=== PATIENT | female | born 2005 | race Caucasian/White ===

== ENCOUNTER 2024-10-30 18:29 | Observation (INO) ==
[2024-10-30 19:02] LABS: Basophils # (auto) 0.02 K/uL (0.00-0.20); Basophils % (auto) 0.1 %; Eosinophils # (auto) 0.05 K/uL (0.00-0.50); Eosinophils % (auto) 0.4 %; Hematocrit (blood only) 41.2 % (37.0-47.0); Hemoglobin 14.3 g/dl (12.0-16.0); Immature Granulocytes # (auto) 0.05 K/uL (0.01-0.20); Immature Granulocytes % (auto) 0.4 %; Lymphocytes # (auto) 1.27 K/uL (1.20-3.40); Lymphocytes % (auto) 8.9 %; Mean Corpuscular Hemoglobin 30.4 pg (25.0-34.0); Mean Corpuscular Hgb Conc 34.7 g/dL (32.0-36.0); Mean Corpuscular Volume 87.7 fL (80.0-100.0); Mean Platelet Volume 10.5 fL (9.4-12.4); Monocytes # (auto) 1.24 K/uL (0.11-0.59); Monocytes % (auto) 8.7 %; Neutrophils # (auto) 11.58 K/uL (1.40-6.50); Neutrophils % (auto) 81.5 %; Platelet Count 164 K/uL (130-400); RDW Coefficient of Variation 11.5 % (11.5-14.5); RDW Standard Deviation 37.3 fL (36.4-46.3); White Blood Count 14.21 K/ul (4.8-10.8)
[2024-10-30 19:09] LABS: Albumin Globulin Ratio 1.5 (0.9-2); Albumin Level 4.5 gm/dl (3.4-5.0); BUN Creatinine Ratio 15.6 (10-20); Bilirubin,Total 0.5 mg/dl (0.2-1.0); Calcium 9.6 mg/dl (8.6-10.3); Globulin 3.1 gm/dl (2.5-4.0); Potassium 3.9 mmol/L (3.5-5.1); Total Protein 7.6 gm/dl (6.0-8.3)
--- NOTE | 2024-10-30 19:22 | Emergency Department Note ---
Impression & Plan Acute appendicitis, Abdominal pain, Leukocytosis ED Provider Note NAME: MICHAEL GONZALEZ AGE: 19 SEX: F : 2005 ARRIVES VIA: Walk-In INFORMANT: Patient ED PROVIDER(S): Zurdo Martínez DO CHIEF COMPLAINT: Abdominal pain, nausea and vomiting HPI: Patient is a 19-year-old female who presents to the ER WITH NO SIGNIFICANT PAST MEDICAL HISTORY for mid abdominal pain associated with nausea and vomiting. Normal bowel movements with her last bowel movement earlier today. Last menstrual period just finished up several days ago. Denies any headache or change in vision. No chest pain or shortness of breath. Pain came on suddenly periumbilically around 1 PM and now radiates into the epigastric region. No previous abdominal surgeries. No dysuria, urgency or frequency. No other exacerbating or remitting factors. ADDITIONAL HISTORY OBTAINED: Per HPI Chronic Medical/Social Conditions Affecting Care: Per HPI PAST MEDICAL HISTORY:See Below PAST SURGICAL HISTORY:See Below FAMILY HISTORY:See Below SOCIAL HISTORY:See Below HOME MEDICATIONS:See Below ALLERGIES:See Below VITALS:See Below PHYSICAL EXAMINATION: GENERAL: Sitting up in bed, alert, well appearing, well nourished, no distress, non-toxic EYE EXAM: normal conjunctiva. OROPHARYNX: mucous membranes are moist LUNGS: Clear to auscultation. Normal chest wall mechanics HEART: no murmurs, S1 normal and S2 normal ABDOMEN: abdomen soft, tender palpation right lower quadrant, normo-active bowel sounds, no masses, no rebound or guarding. UPPER EXTREMITIES: upper extremities are grossly normal. LOWER EXTREMITIES: No pitting edema. NEURO EXAM: Normal sensorium, cranial nerves II-XII grossly intact, normal speech, no gross weakness of arms, no gross weakness of legs. MEDICAL DECISION MAKING: Patient is a 19-year-old female who presents ER for the above-stated complaint. IV was established and blood work was obtained. Labs show leukocytosis of 14,000. No significant anemia. BMP with mild hyponatremia. LFTs bilirubin was unremarkable. hCG negative. UA was contaminated with epithelial cells. CT abdomen pelvis showed acute appendicitis. Patient was given IV fluids, Zofran, morphine and 2 g of cefoxitin. I discussed with general surgery Dr. John Ramos who evaluated the patient and took the patient to the OR. Consults/Care Managements Discussions: Per [facility] Triage Nursing notes reviewed. Limited review of prior medical records performed Vital Signs: reviewed and remarkable for no significant abnormalities Differential diagnosis: Differential diagnoses includes but is not limited to gastritis, peptic ulcer disease, GERD, gallbladder disease, pancreatitis, small bowel obstruction, appendicitis, diverticulitis, hernia, urinary tract infection, torsion, /ectopic (if female), perforation, trauma, infectious. ER treatment provided: See below Diagnostics interpreted by me include EKG and cardiac monitoring as listed below: -Cardiac Monitoring: An order was placed for continuous cardiac monitoring. The monitor shows a rate of 80 with sinus rhythm. -ECG: none -Laboratory studies:Interpreted by me as stated above in MDM and shown below. Imaging studies: Xrays: As interpreted by me:none CTs show: CT of the pelvis per my preliminary interpretation showed no obvious bowel obstruction CT abdomen pelvis per radiology shows acute appendicitis Procedures:none Critical Care: None Past Med/Surg History Problem List (Updated 10/30/24 @ 22:46 by Zurdo Martínez DO) Leukocytosis (Acute) Abdominal pain (Acute) Acute appendicitis (Acute) Medical History No acute medical problems Surgical History No pertinent past surgical history Social History Smoking Status: Never smoker Tobacco Type: Cigarettes Preferred Language: Pashto Feels Safe at Home: Yes Allergies Allergies Allergy/AdvReac Type Severity Reaction Status Date / Time No Known Allergies Allergy Verified 10/30/24 20:44 Home Meds Home Medications Medication Instructions Recorded Confirmed escitalopram oxalate 20 mg tablet 20 mg PO HS 10/30/24 10/30/24 Results & Data (ED) Vital Signs Vital Signs - 24 hr 10/30/24 18:31 10/30/24 20:30 10/30/24 21:57 Temperature 36.4 C L Temperature Source Temporal Artery Scan Pulse Rate 75 Pulse Rate [Finger] 85 87 Respiratory Rate 20 18 18 Respiratory Effort / Characteristics Non-Labored Spontaneous Non-Labored Spontaneous Non-Labored Spontaneous Respiratory Depth Normal Normal Normal Respiratory Pattern Regular Regular Blood Pressure 122/83 Blood Pressure [Left Arm] 129/69 129/78 Blood Pressure Mean 96 Blood Pressure Mean [Left Arm] 89 95 Blood Pressure Position Sitting Pulse Oximetry 98 98 97 Oxygen Delivery Method Room Air Room Air Room Air Sepsis Recent Fever Within 48 Hours No Sepsis New/Unexplained Change in Mental Status N/A Sepsis Action Taken by Nursing No Action Required Laboratory Data 10/30/24 18:35 10/30/24 18:35 Lab Results 10/30/24 10/30/24 10/30/24 Range/Units 18:35 19:40 19:43 WBC 14.21 H (4.8-10.8) K/ul RBC 4.70 (4.20-5.40) M/uL Hgb 14.3 (12.0-16.0) g/dl Hct 41.2 (37.0-47.0) % MCV 87.7 (80.0-100.0) fL MCH 30.4 (25.0-34.0) pg MCHC 34.7 (32.0-36.0) g/dL RDW Std Deviation 37.3 (36.4-46.3) fL RDW Coeff of Linda 11.5 (11.5-14.5) % Plt Count 164 (130-400) K/uL MPV 10.5 (9.4-12.4) fL Immature Gran % (Auto) 0.4 % Neut % (Auto) 81.5 % Lymph % (Auto) 8.9 % [place] % (Auto) 8.7 % Eos % (Auto) 0.4 % Baso % (Auto) 0.1 % Neut # (Auto) 11.58 H (1.40-6.50) K/uL Lymph # (Auto) 1.27 (1.20-3.40) K/uL [place] # (Auto) 1.24 H (0.11-0.59) K/uL Eos # (Auto) 0.05 (0.00-0.50) K/uL Baso # (Auto) 0.02 (0.00-0.20) K/uL Immature Gran # (Auto) 0.05 (0.01-0.20) K/uL Sodium 135 L (136-145) mmol/L Potassium 3.9 (3.5-5.1) mmol/L Chloride 102 (98-107) mmol/L Carbon Dioxide 27 (21-32) mmol/L Anion Gap 6 (3-11) BUN 12 (6-23) mg/dl Creatinine 0.77 (0.6-1.2) mg/dl Est Cr Clr Drug Dosing 112.0 ml/min eGFR 112.48 BUN/Creatinine Ratio 15.6 (10-20) Glucose 91 (70-99(Fasting)) mg/dl Calcium 9.6 (8.6-10.3) mg/dl Total Bilirubin 0.5 (0.2-1.0) mg/dl AST 15 (13-39) U/L ALT 8 (7-52) U/L Alkaline Phosphatase 57 (34-104) U/L Total Protein 7.6 (6.0-8.3) gm/dl Albumin 4.5 (3.4-5.0) gm/dl Globulin 3.1 (2.5-4.0) gm/dl Albumin/Globulin Ratio 1.5 (0.9-2) HCG, Qual Negative (Negative) Urine Color Yellow Urine Appearance Clear (Clear) Urine pH 6.0 (4.5-7.5) Ur Specific [place] > 1.045 H (1.000-1.030) Urine Protein Negative (Negative) Urine Glucose (UA) Negative (Negative) Urine Ketones 1+ H (Negative) Urine Blood Trace H (Negative) Urine Nitrite Negative (Negative) Urine Bilirubin Negative (Negative) Urine Urobilinogen Negative (Negative) Ur Leukocyte Esterase Negative (Negative) Urine WBC (Auto) 0-5 (0-5) /hpf Urine RBC (Auto) 3-5 H (0-2) /hpf U Hyaline Cast (Auto) 0-2 (0-2) /lpf U Epithel Cells (Auto) 3-5 H (0-2) /hpf Urine Bacteria (Auto) 2+ H (None Seen) POC Ur Test NEG (NEG) Administered Medications Discontinued Medications Sodium Chloride (Nss) 1,000 mls @ 999 mls/hr IV .Q1H1M ONE Stop: 10/30/24 20:17 Last Infusion: 10/30/24 20:43 Dose: Infused Documented By: Admin: 10/30/24 19:33 Dose: 999 mls/hr Documented By: DEBI Cefoxitin Sodium (Mefoxin) 2,000 mg in 60 mls @ 100 mls/hr IV NOW STA Stop: 10/30/24 20:53 Last Infusion: 03/17/25 21:48 Dose: Infused Documented By: Admin: 10/30/24 20:44 Dose: 100 mls/hr Documented By: CHRISTIANA Ioversol (Optiray 320 100ml) 93 ml IV ONCE ONE Stop: 10/30/24 19:26 Last Admin: 10/30/24 19:26 Dose: 93 ml Documented By: LEONIDAS Ketorolac Tromethamine (Ketorolac Tromethamine 15 Mg/Ml Vial) 10 mg IV NOW ONE Stop: 10/30/24 19:18 Last Admin: 10/30/24 19:33 Dose: 10 mg Documented By: DEBI Morphine Sulfate (Morphine Sulfate 2 Mg/Ml Carp) 2 mg IV NOW STA Stop: 10/30/24 20:19 Last Admin: 10/30/24 20:44 Dose: 2 mg Documented By: CHRISTIANA Ondansetron HCl (Ondansetron Inj 2 Mg/Ml 2 Ml Vial) 4 mg IV NOW STA Stop: 10/30/24 19:18 Last Admin: 10/30/24 19:33 Dose: 4 mg Documented By: DEBI Imaging Data Radiologist's Impression: Abdomen/Pelvis CT 10/30/24 19:17 Clinical History: Epigastric pain. Nausea and vomiting Technique: Axial computed tomography images were obtained of the abdomen and pelvis after the administration of intravenous contrast. No prior CT is available for comparison. Findings: The liver is overall of normal size, attenuation, and contour with no sign of cirrhosis or significant fatty infiltration. No liver mass lesion is seen. The portal vein is patent. The gallbladder appears unremarkable. No bile duct dilatation is noted. The spleen is of normal size. No focal splenic lesion is evident. The pancreas appears normal with no sign of acute or chronic pancreatitis and no mass lesion noted. The pancreatic duct is of normal caliber. The adrenal glands appear unremarkable. No definite renal or proximal ureteral calculi are seen on this contrast-enhanced study. There is no hydronephrosis or perinephric stranding. No renal mass lesion is identified. The aorta is of normal caliber. No abdominal adenopathy is seen. The stomach appears normal. There is no sign of small bowel obstruction. The colon appears unremarkable. The appendix is difficult to differentiate from adjacent small bowel loops. What is felt to be the appendix is dilated and fluid-filled and contains a small appendicolith, measuring up to 9 mm. No clear adjacent inflammatory changes seen. No free intraperitoneal air is identified. There is a small amount of free pelvic fluid No distal ureteral or bladder calculi are seen. The bladder is decompressed. The iliac arteries are of normal caliber. No pelvic adenopathy is noted. There are small follicles in both ovaries The lungs bases appear clear. No fracture is identified. No focal osseous lesion is seen Impression: Suspected acute appendicitis. There is no sign of perforation or abscess formation Electronically signed by Francesco Deras 10-30-2024 7:45 PM Discharge Plan Visit Data Chief Complaint: Abdominal Pain Stated Complaint: NAUSEA,ABD PAIN,RIB PAIN ED Provider: Zurdo Martínez Discharge Problem: Acute appendicitis, Abdominal pain, Leukocytosis Patient Disposition: Admitted As Inpatient Discharge Instructions Interventions: ED Discharge Assessment Last Done: 10/30/24 21:58 Forms Stand Alone Forms: Vidly Prescriptions Prescriptions: No Action escitalopram oxalate 20 mg tablet 20 mg PO HS Referrals Referrals: [facility] [Primary Care Provider] - Discharge Problem: Acute appendicitis Qualifiers: Acute appendicitis type: unspecified acute appendicitis type Qualified Code(s): K35.80 - Unspecified acute appendicitis Abdominal pain Qualifiers: Abdominal location: unspecified location Qualified Code(s): R10.9 - Unspecified abdominal pain Leukocytosis Qualifiers: Leukocytosis type: unspecified Qualified Code(s): D72.829 - Elevated white blood cell count, unspecified
[2024-10-30] MEDS: OPTIRAY 320 100ml IV ONE (19:26)
[2024-10-30] MEDS: ONDANSETRON INJ 2 MG/ML 2 ML VIAL IV STA (19:33)
[2024-10-30] MEDS: KETOROLAC TROMETHAMINE 15 MG/ML VIAL IV ONE (19:33)
[2024-10-30] MEDS: SODIUM CHLORIDE 0.9% 1,000 ML IV ONE (19:33)
[2024-10-30 19:37] LABS: Pregnancy Test, Serum Negative (Negative)
--- NOTE | 2024-10-30 19:46 | CT Scan Report ---
Clinical History: Epigastric pain. Nausea and vomiting Technique: Axial computed tomography images were obtained of the abdomen and pelvis after the administration of intravenous contrast. No prior CT is available for comparison. Findings: The liver is overall of normal size, attenuation, and contour with no sign of cirrhosis or significant fatty infiltration. No liver mass lesion is seen. The portal vein is patent. The gallbladder appears unremarkable. No bile duct dilatation is noted. The spleen is of normal size. No focal splenic lesion is evident. The pancreas appears normal with no sign of acute or chronic pancreatitis and no mass lesion noted. The pancreatic duct is of normal caliber. The adrenal glands appear unremarkable. No definite renal or proximal ureteral calculi are seen on this contrast-enhanced study. There is no hydronephrosis or perinephric stranding. No renal mass lesion is identified. The aorta is of normal caliber. No abdominal adenopathy is seen. The stomach appears normal. There is no sign of small bowel obstruction. The colon appears unremarkable. The appendix is difficult to differentiate from adjacent small bowel loops. What is felt to be the appendix is dilated and fluid-filled and contains a small appendicolith, measuring up to 9 mm. No clear adjacent inflammatory changes seen. No free intraperitoneal air is identified. There is a small amount of free pelvic fluid No distal ureteral or bladder calculi are seen. The bladder is decompressed. The iliac arteries are of normal caliber. No pelvic adenopathy is noted. There are small follicles in both ovaries The lungs bases appear clear. No fracture is identified. No focal osseous lesion is seen Impression: Suspected acute appendicitis. There is no sign of perforation or abscess formation Electronically signed by Francesco Deras 10-30-2024 7:45 PM
[2024-10-30 20:13] LABS: Appearance Urine Clear (Clear); Bacteria Urine Automated 2+ (None Seen); Bilirubin Urine Negative (Negative); Blood Urine Trace (Negative); Cast Urine Automated 0-2 /lpf (0-2); Color Urine Yellow; Glucose Urine UA Negative (Negative); Ketones Urine 1+ (Negative); Leukocyte Esterase Urine Negative (Negative); Nitrite Urine Negative (Negative); Protein Urine Negative (Negative); Specific Gravity Urine > 1.045 (1.000-1.030); Urobilinogen Urine Negative (Negative); WBC Urine Automated 0-5 /hpf (0-5)
[2024-10-30] MEDS: MoRPHine SULFATE 2 MG/ML CARP IV STA (20:44)
[2024-10-30] MEDS: cefOXitin 2,000 MG/60 ML BAG IV STA (20:44)
[2024-10-30] MEDS ORDERED: LIDOCAINE 2% 2 ML VIAL/AMP(20MG/ML) INFIL ONE (21:44)
[2024-10-30] MEDS ORDERED: ONDANSETRON INJ 2 MG/ML 2 ML VIAL ONE (21:44)
[2024-10-30] MEDS ORDERED: DEXAMETHASONE SOD INJ 4 MG/ML VIAL ONE (21:44)
[2024-10-30] MEDS ORDERED: ROCURONIUM BROMIDE 10 MG/ML 5 ML VIAL IV ONE (21:45)
[2024-10-30] MEDS ORDERED: GLYCOPYRROLATE 0.2 MG/ML VIAL ONE (21:45)
[2024-10-30] MEDS ORDERED: fentaNYL citrate PF 100 MCG/2 ML VIAL ONE ×2 (21:45→22:35)
[2024-10-30] MEDS ORDERED: NEOSTIGMINE METHYLSULFATE 1 MG/ML 10ML VIAL ONE (21:45)
[2024-10-30] MEDS ORDERED: PROPOFOL IV EMULSION 10 MG/ML 20 ML VIAL IV ONE (21:45)
[2024-10-30] MEDS ORDERED: MIDAZOLAM HCL 1 MG/ML 2ML VIAL ONE (21:45)
--- NOTE | 2024-10-30 21:46 | History & Physical Report ---
Date of Service October 30, 2024 Assessment & Plan (1) Acute appendicitis: Plan 19-year-old presents with acute appendicitis. Had a long discussion with her concerning laparoscopic appendectomy, risks and benefits, postoperative course and recovery. All her questions were answered, she is agreeable to proceed. we will take her to the operating room at the earliest convenience. History of Present Illness Primary Care Provider: [facility] 19-year-old presents with sudden onset of periumbilical and epigastric abdominal pain which is now radiating to the right lower quadrant. This was associated with sweats and hot flashes. She last ate at noon. She did have nausea and vomiting. She has not had diarrhea. She has had no prior surgeries on her abdomen. CT scan demonstrates acute appendicitis with appendicolith. White blood cell count is 14. Allergies Allergy/AdvReac Type Severity Reaction Status Date / Time No Known Allergies Allergy Verified 10/30/24 20:44 Home Medications Medication Instructions Recorded Confirmed Type escitalopram oxalate 20 mg tablet 20 mg PO HS 10/30/24 10/30/24 History Past Med/Surg History Problem List (Updated 10/30/24 @ 21:47 by John Ramos MD) Acute appendicitis Medical History No acute medical problems Surgical History No pertinent past surgical history Social History Smoking Status: Never smoker Tobacco Type: Cigarettes Preferred Language: Bermudian Feels Safe at Home: Yes Review of Systems Review of Systems: All systems reviewed & are unremarkable except as noted in HPI & below Physical Exam Constitutional: WD/WN, vitals as above Eyes: PERRL, conjunctivae normal, anicteric sclerae Neck: trachea midline, no thyromegaly Respiratory: normal respiratory effort; no respiratory distress and no labored breathing Cardiovascular: Rate/Rhythm: regular rate and regular rhythm Gastrointestinal (Abdomen): Inspection/Auscultation: abdomen normal to inspection; abdomen not distended Percussion/Palpation: + abdomen tender ( Lower abdomen) and abdomen soft; no guarding and abdomen not rigid positive Rovsing sign Skin: no rashes, warm and dry Psychiatric: A+Ox3, euthymic affect Results & Data Results & Data Vital Signs (Past 12 Hours) Vital Signs Temp Pulse Pulse Resp BP BP Pulse Ox 10/30/24 20:30 85 18 129/69 98 10/30/24 18:31 36.4 C L 75 20 122/83 98 O2 Del Method 10/30/24 20:30 Room Air 10/30/24 18:31 Room Air Laboratory Results 10/30/24 10/30/24 10/30/24 Range/Units 19:43 19:40 18:35 WBC 14.21 H (4.8-10.8) K/ul RBC 4.70 (4.20-5.40) M/uL Hgb 14.3 (12.0-16.0) g/dl Hct 41.2 (37.0-47.0) % MCV 87.7 (80.0-100.0) fL MCH 30.4 (25.0-34.0) pg MCHC 34.7 (32.0-36.0) g/dL RDW Std Deviation 37.3 (36.4-46.3) fL RDW Coeff of Linda 11.5 (11.5-14.5) % Plt Count 164 (130-400) K/uL MPV 10.5 (9.4-12.4) fL Immature Gran % (Auto) 0.4 % Neut % (Auto) 81.5 % Lymph % (Auto) 8.9 % [place] % (Auto) 8.7 % Eos % (Auto) 0.4 % Baso % (Auto) 0.1 % Neut # (Auto) 11.58 H (1.40-6.50) K/uL Lymph # (Auto) 1.27 (1.20-3.40) K/uL [place] # (Auto) 1.24 H (0.11-0.59) K/uL Eos # (Auto) 0.05 (0.00-0.50) K/uL Baso # (Auto) 0.02 (0.00-0.20) K/uL Immature Gran # (Auto) 0.05 (0.01-0.20) K/uL Sodium 135 L (136-145) mmol/L Potassium 3.9 (3.5-5.1) mmol/L Chloride 102 (98-107) mmol/L Carbon Dioxide 27 (21-32) mmol/L Anion Gap 6 (3-11) BUN 12 (6-23) mg/dl Creatinine 0.77 (0.6-1.2) mg/dl Est Cr Clr Drug Dosing 112.0 ml/min eGFR 112.48 BUN/Creatinine Ratio 15.6 (10-20) Glucose 91 (70-99(Fasting)) mg/dl Calcium 9.6 (8.6-10.3) mg/dl Total Bilirubin 0.5 (0.2-1.0) mg/dl AST 15 (13-39) U/L ALT 8 (7-52) U/L Alkaline Phosphatase 57 (34-104) U/L Total Protein 7.6 (6.0-8.3) gm/dl Albumin 4.5 (3.4-5.0) gm/dl Globulin 3.1 (2.5-4.0) gm/dl Albumin/Globulin Ratio 1.5 (0.9-2) HCG, Qual Negative (Negative) Urine Color Yellow Urine Appearance Clear (Clear) Urine pH 6.0 (4.5-7.5) Ur Specific [place] > 1.045 H (1.000-1.030) Urine Protein Negative (Negative) Urine Glucose (UA) Negative (Negative) Urine Ketones 1+ H (Negative) Urine Blood Trace H (Negative) Urine Nitrite Negative (Negative) Urine Bilirubin Negative (Negative) Urine Urobilinogen Negative (Negative) Ur Leukocyte Esterase Negative (Negative) Urine WBC (Auto) 0-5 (0-5) /hpf Urine RBC (Auto) 3-5 H (0-2) /hpf U Hyaline Cast (Auto) 0-2 (0-2) /lpf U Epithel Cells (Auto) 3-5 H (0-2) /hpf Urine Bacteria (Auto) 2+ H (None Seen) POC Ur Test NEG (NEG) Diagnostic Findings Clinical History: Epigastric pain. Nausea and vomiting Technique: Axial computed tomography images were obtained of the abdomen and pelvis after the administration of intravenous contrast. No prior CT is available for comparison. Findings: The liver is overall of normal size, attenuation, and contour with no sign of cirrhosis or significant fatty infiltration. No liver mass lesion is seen. The portal vein is patent. The gallbladder appears unremarkable. No bile duct dilatation is noted. The spleen is of normal size. No focal splenic lesion is evident. The pancreas appears normal with no sign of acute or chronic pancreatitis and no mass lesion noted. The pancreatic duct is of normal caliber. The adrenal glands appear unremarkable. No definite renal or proximal ureteral calculi are seen on this contrast-enhanced study. There is no hydronephrosis or perinephric stranding. No renal mass lesion is identified. The aorta is of normal caliber. No abdominal adenopathy is seen. The stomach appears normal. There is no sign of small bowel obstruction. The colon appears unremarkable. The appendix is difficult to differentiate from adjacent small bowel loops. What is felt to be the appendix is dilated and fluid-filled and contains a small appendicolith, measuring up to 9 mm. No clear adjacent inflammatory changes seen. No free intraperitoneal air is identified. There is a small amount of free pelvic fluid No distal ureteral or bladder calculi are seen. The bladder is decompressed. The iliac arteries are of normal caliber. No pelvic adenopathy is noted. There are small follicles in both ovaries The lungs bases appear clear. No fracture is identified. No focal osseous lesion is seen Impression: Suspected acute appendicitis. There is no sign of perforation or abscess formation Electronically signed by Francesco Deras 10-30-2024 7:45 PM Dictated: [id number] Transcribed: (1) Acute appendicitis Acute appendicitis type: with localized peritonitis Appendicitis gangrene presence: without gangrene Appendicitis perforation presence: without perforation Appendicitis abscess presence: without abscess Qualified Code(s): K35.30 - Acute appendicitis with localized peritonitis, without perforation or gangrene
[2024-10-30] MEDS ORDERED: ONDANSETRON INJ 2 MG/ML 2 ML VIAL IV PRN (21:57)
[2024-10-30] MEDS ORDERED: PROMETHAZINE HCL 6.25 MG in SODIUM CHLORIDE 0.9% 50 ML IV PRN (21:57)
[2024-10-30] MEDS ORDERED: HYDROmorphone INJ 2 MG/ML SYR/VIAL IV PRN (21:57)
[2024-10-30] MEDS ORDERED: ATROPINE SULFATE 0.1 MG/ML 10ML SYR IV PRN (21:57)
[2024-10-30] MEDS ORDERED: ePHEDrine sulfate 50 MG/ML AMP IV PRN (21:57)
--- NOTE | 2024-10-30 21:57 | Anesthesiology Consultation ---
Date of Service October 30, 2024 Assessment & Plan Chart Review Chart Review: Acceptable Risk for Surgery Consults Requested none History Surgery Operation Date: 10/30/24 22:00 Proposed Procedures p Laparoscopic Appendectomy - John Ramos MD Height/Weight Height: 5 ft 8 in Weight: 61.4 kg Allergies Allergy/AdvReac Type Severity Reaction Status Date / Time No Known Allergies Allergy Verified 10/30/24 20:44 Medications Home Medications Medication Instructions Recorded Confirmed Last Taken escitalopram oxalate 20 mg tablet 20 mg PO HS 10/30/24 10/30/24 10/29/24 Past Medical History Medical History No acute medical problems Past Surgical History Surgical History No pertinent past surgical history Social History Smoking Status: Never smoker Physical Exam Vital Signs Last Vital Signs Temp 36.4 C L 10/30/24 18:31 Pulse 85 10/30/24 20:30 Resp 18 10/30/24 20:30 BP 129/69 10/30/24 20:30 Pulse Ox 98 10/30/24 20:30 O2 Del Method Room Air 10/30/24 20:30 Testing Laboratory Results 10/30/24 18:35 10/30/24 18:35 Urine Color Yellow 10/30/24 19:40 Urine Appearance Clear (Clear) 10/30/24 19:40 Urine pH 6.0 (4.5-7.5) 10/30/24 19:40 Ur Specific [place] > 1.045 (1.000-1.030) H 10/30/24 19:40 Urine Protein Negative (Negative) 10/30/24 19:40 Urine Glucose (UA) Negative (Negative) 10/30/24 19:40 Urine Ketones 1+ (Negative) H 10/30/24 19:40 Urine Nitrite Negative (Negative) 10/30/24 19:40 Ur Leukocyte Esterase Negative (Negative) 10/30/24 19:40 Urine WBC (Auto) 0-5 /hpf (0-5) 10/30/24 19:40 Urine RBC (Auto) 3-5 /hpf (0-2) H 10/30/24 19:40 U Hyaline Cast (Auto) 0-2 /lpf (0-2) 10/30/24 19:40 U Epithel Cells (Auto) 3-5 /hpf (0-2) H 10/30/24 19:40 Urine Bacteria (Auto) 2+ (None Seen) H 10/30/24 19:40 10/30/24 19:43 POC Ur Test NEG
[2024-10-30] MEDS: BUPIVACAINE/EPINEPHRINE 0.5% MPF 1:200,000 30 ML VIAL ONE (23:05)
--- NOTE | 2024-10-30 23:12 | Operative Report ---
Post Operative Report Pre & Post Diagnosis Operation Date: 10/30/24 22:00 Pre-Op Diagnosis: Acute appendicitis Post-Op Diagnosis: Acute appendicitis I identified the patient and participated in the time-out.: Yes Procedure Operation Date: 10/30/24 22:00 Actual Procedures p Laparoscopic Appendectomy(Not Applicable) - John Ramos MD Surgeon John Ramos MD [employer] Work[employer] None Estimated Blood Loss 5 Findings Consistent with Post-Op Diagnosis acute appendicitis Specimens appendix Drains none Anesthesia Type General Complications none Description of Procedure the patient was taken to the operating room, and placed supine on the operating table. A timeout was performed, perioperative antibiotics were administered, SCD boots were placed. After adequate anesthesia and analgesia was obtained, the abdomen was prepped and draped in the normal sterile fashion. A 1 cm incision was made in the supraumbilical region and carried down to the level of the fascia. A trach hook was used to grasp the fascia and elevated and a varies needle was used to enter the abdominal cavity. The abdomen was insufflated to a pressure of 15 mmHg, and a 5 mm trocar was placed in this location. A 5 mm 30 degree laparoscope was placed into the abdominal cavity, and the abdomen was surveyed. The patient was placed in Trendelenburg and slightly to the left. One 5 mm trocar was placed in the right upper quadrant, and one 12 mm trocar was placed in the left lower quadrant under direct visualization. The right colon was identified and traced down to the cecum. The appendix was identified and elevated anteriorly and medially. A window was created at the base of the appendix with a [place] dissector. The Endo MARY ANNE stapler was used to transect the appendix at its base through noninflamed tissue, and subsequently the mesoappendix. The appendix was placed in an Endo Catch bag, and removed via the left lower quadrant port site. Attention was turned to hemostasis, which was excellent. The abdomen was copiously irrigated and suctioned free, and again hemostasis was found to be excellent. All trochars removed under direct visualization. The abdomen was desufflated. The fascia in the 12 mm port site was closed with a 0 Vicryl suture. The skin was closed with a running 4-0 Monocryl subcuticular stitch. Dermabond was applied. The patient tolerated the procedure without complication, and was transferred in stable condition to the PACU. All instrument, needle, and sponge counts were correct at the end of the case. I attest to the content of the Intraoperative Record and any orders documented therein. Any exceptions are noted below.
[2024-10-30] MEDS: fentaNYL citrate PF 100 MCG/2 ML VIAL IV PRN (23:25)
--- NOTE | 2024-10-30 23:30 | Anesthesiology Progress Note ---
Date of Service October 30, 2024 Anesthesia Post Procedure Vital Signs Vital Signs: Temp Pulse Pulse Resp BP BP Pulse Ox 10/30/24 23:15 36.9 C 62 18 127/61 97 10/30/24 21:57 87 18 129/78 97 10/30/24 20:30 85 18 129/69 98 10/30/24 18:31 36.4 C L 75 20 122/83 98 O2 Del Method 10/30/24 23:15 Room Air 10/30/24 21:57 Room Air 10/30/24 20:30 Room Air 10/30/24 18:31 Room Air Pain Intensity Bilateral Abdomen: Pain Intensity: 7 Transfer of Care Handoff Completed per policy Notes Mental Status: alert / awake / arousable and participated in evaluation Patient Amnestic to Procedure: Yes Nausea / Vomiting: adequately controlled Pain: adequately controlled Airway Patency, RR, SpO2: stable & adequate BP & HR: stable & adequate Hydration State: stable & adequate Anesthetic Complications: no major complications apparent
[2024-10-31] MEDS ORDERED: PROMETHAZINE 12.5 MG/50.5 ML BAG IV PRN (00:25)
[2024-10-31] MEDS ORDERED: oxyCODONE/ACETAMINOPHEN 5mg/325mg TAB PO PRN (00:25)
[2024-10-31] MEDS ORDERED: diphenhydrAMINE Capsule 25 MG CAP PO PRN (00:25)
[2024-10-31] MEDS: MoRPHine SULFATE 2 MG/ML CARP IV PRN (00:57)
[2024-10-31] MEDS: ONDANSETRON INJ 2 MG/ML 2 ML VIAL IV PRN (00:57)
[2024-10-31] MEDS: KETOROLAC 30 MG/ML VIAL IV PRN (02:52)
--- NOTE | 2024-10-31 08:28 | Surgery Progress Note ---
Date of Service October 31, 2024 Assessment & Plan (1) Acute appendicitis: Plan: doing well POD #1 s/p lap appendectomy. Advance diet as tolerated, encourage ambulation. Most likely discharge to home this afternoon. Admission and Anticipated Discharge Date Admission Date: October 30, 2024 Subjective POD #1 s/p lap appendectomy. She is doing quite well. She denies nausea or vomiting. She denies fevers or chills. Some pain in her abdomen. Physical Exam Physical Exam: AFVSS NAD, A&O x 3 Abdomen: Soft, mild TTP Incisions: Clean/dry/intact; Dermabond in place Results & Data Vital Signs (Past 12 Hours) Vital Signs Temp Pulse Resp BP Pulse Ox Pulse Ox O2 Del Method 10/31/24 07:17 36.6 C 102 H 18 114/70 95 Room Air 10/31/24 03:17 36.9 C 97 H 16 109/62 97 Room Air 10/31/24 02:17 37.0 C 105 H 18 113/67 97 Room Air 10/31/24 01:09 37.1 C 76 16 116/69 96 Room Air 10/31/24 00:49 37.0 C 67 16 112/73 95 Room Air 10/31/24 00:15 36.8 C 64 16 123/74 96 Room Air 10/31/24 00:15 97 10/30/24 23:55 36.8 C 63 18 128/76 97 Room Air 10/30/24 23:45 36.8 C 61 16 134/77 97 Room Air 10/30/24 23:35 36.9 C 61 16 129/71 97 Room Air 10/30/24 23:25 36.6 C 101 H 18 129/71 97 Room Air 10/30/24 23:15 36.9 C 62 18 127/61 97 Room Air 10/30/24 21:57 87 18 129/78 97 Room Air 10/30/24 20:30 85 18 129/69 98 Room Air O2 Del Method 10/31/24 07:17 10/31/24 03:17 10/31/24 02:17 10/31/24 01:09 10/31/24 00:49 10/31/24 00:15 10/31/24 00:15 Room Air 10/30/24 23:55 10/30/24 23:45 10/30/24 23:35 03/17/25 23:25 10/30/24 23:15 10/30/24 21:57 10/30/24 20:30 (1) Acute appendicitis Acute appendicitis type: unspecified acute appendicitis type Qualified Code( s): K35.80 - Unspecified acute appendicitis
[2024-10-31 11:41] VITALS: BP 98/63; PULSE 65; RESP 16; TEMP 98.8; O2SAT 99
--- NOTE | 2024-11-01 11:55 | Discharge Summary ---
Date of Service November 01, 2024 Admission HPI Per Admitting Provider 19-year-old presents with sudden onset of periumbilical and epigastric abdominal pain which is now radiating to the right lower quadrant. This was associated with sweats and hot flashes. She last ate at noon. She did have nausea and vomiting. She has not had diarrhea. She has had no prior surgeries on her abdomen. CT scan demonstrates acute appendicitis with appendicolith. White blood cell count is 14. Principal Diagnosis Acute appendicitis Discharge Data Allergies Allergy/AdvReac Type Severity Reaction Status Date / Time No Known Allergies Allergy Verified 10/30/24 20:44 Consultations 10/30/24 20:18 ED Decision to Admit Stat Procedures Performed Operation Date: 10/30/24 22:00 Actual Procedures p Laparoscopic Appendectomy(Not Applicable) - John Ramos MD Ordered Studies 10/30/24 19:17 CT abd pelvis IV con only Stat Hospital Course (1) Acute appendicitis: patient was seen in the emergency department and was noted to have acute appendicitis. She was taken to the operating room immediately for laparoscopic appendectomy, the details of which are dictated in a separate operative note. Postoperatively she was transferred to the PACU and subsequently to the floor in stable condition. Throughout her hospital course, her diet was advanced as tolerated. Pain control was with IV pain medication and then p.o. pain medication. DVT prophylaxis with SCDs and early ambulation. By the date of discharge, she was tolerating a regular diet, not requiring any IV pain medication, was discharged home in stable condition. She will follow-up in 2 weeks. Total Time Total Time Spent Total Time Spent (In Minutes): 30 minutes Discharge Plan Discharge Items Patient Disposition: Home - Self-Care Reason For Visit: APPENDICITIS Discharge Diagnosis: acute appendicitis Activity: Per Instructions section Lifting: No more than 10 pounds Sexual Activity: Wait until after follow-up appointment Exercise/Sports: Wait until after follow-up appointment Non-emergency contact: Surgeon Call non-emergency contact if: you have any medication questions, your symptoms worsen, your pain is not controlled, your pain is worsening, your pain is unusual for you, your temperature is above 101.5, your wound has increased redness, your wound has increased drainage and your wound pain has increased Follow-up/Referrals: [facility] [Primary Care Provider] - Diet: Regular Addtl Attending Provider Instructions: Post-Surgical ~Discharge Instructions Activity Recommendations: - lifting limitation: (10 pounds for 2 weeks), - exercise/sex/sports limit: (nonstrenuous for 2 weeks), - driving or machine use limit: (none for 1 week), - Shower/bathe limit: (may shower beginning tomorrow) Diet: - Resume previous diet SPECIAL CARE INSTRUCTIONS: - May shower in 24 hours. Let water run over area and pat dry. - Leave steri strips on for one week. - Call the surgeon's office with any questions or concerns - - (ex. temperature higher than 101 degrees F, excessive bleeding or pain). MEDICATIONS: - Resume previous medications unless instructed otherwise by your surgeon. - Ibuprofen 600 mg every 6 hours with food - Percocet 1 every 4 hours, as needed for pain FOLLOW UP VISIT: - If not already scheduled, please call the office to schedule a two week follow-up appointment. Office number Pending Studies at Discharge: No Stand-Alone Forms: My [facility], Work/School Release, Smoking Cessation Medications and DC Order Prescriptions: New oxycodone-acetaminophen [Percocet] 5-325 mg tablet 1 tab PO Q6H PRN (Reason: pain) Qty: 10 0RF Continued escitalopram oxalate 20 mg tablet 20 mg PO HS Discharge Orders: Discharge Order (Routine); Ordered 10/31/24 Ordered By: John Ramos Admission Data Admit Date/Time: 10/30/24 23:15 Attending Provider: John Ramos Admit Provider: John Ramos Primary Care Provider: [facility] Other Providers: John Ramos Other Interventions: Discharge Summary Assessment (RN) Last Done: 10/31/24 12:34
== END 2024-10-31 12:57 | disposition home or self-care (01) ==
LOC: ED 18:29 → 3N 21:58 → OR 21:58